=== PATIENT | male | born 1990 | race Caucasian/White ===

== ENCOUNTER 2016-06-02 10:12 | Emergency (ER) | payer SELFPAY ==
--- NOTE | 2016-06-03 10:01 | NUR ---
Received [facility] person referral. Attempted to contact pt. No answer, voice mail message left.
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
--- NOTE | 2016-06-07 21:33 | ER ---
ADMIT: 06/02/2016 RM/LOC: ER [facility] MR#: [id number] [address] [id number] L[place]US TIDWELL [address] [facility] [place] [address] Emergency Room Report SEX: M AGE: 25 : 1990 DATE: 06/02/2016 ADDENDUM: CHIEF COMPLAINT: Nausea and cough. HISTORY OF PRESENT ILLNESS: This 25-year-old, who had these symptoms intermittently for the last 3 weeks. He says he continues to have the same symptoms. On examination, everything is completely normal. He is not vomiting here, he said he has not vomited at all. He is afebrile. I told him this could just be a touch of a viral syndrome that he could be either re- infecting himself with or multiple viruses that he has had in the last 2-3 weeks. CLINICAL IMPRESSION: Viral syndrome. DISPOSITION: Told him to push fluids, rest, and follow up as needed. ELVI Brian / Richard Beth MD / isabelle JOB #: [id number] CC: Richard Beth MD, Attending Physician
== END 2016-06-02 11:27 | disposition home or self-care (01) ==
LOC: ER 10:12
DX: B34.9 Viral infection, unspecified (principal); F17.210 Nicotine dependence, cigarettes, uncomplicated